=== PATIENT | male | born 1970 | race African-American/Black ===

== ENCOUNTER 2018-02-27 18:28 | Inpatient (IN) | payer BC ==
[2018-02-27] MEDS ORDERED: SODIUM CHLORIDE 0.9% 1,000 ML IV STA (19:07)
[2018-02-27] MEDS ORDERED: ONDANSETRON 4 MG/2 ML VIAL IVP STA (19:07)
[2018-02-27] MEDS ORDERED: MORPHINE SULFATE 4 MG/0.8 ML SYRINGE (INJ) IVP STA (19:08)
[2018-02-27] MEDS ORDERED: MORPHINE SULFATE 4 MG/ML SYRINGE IVP STA (19:24)
--- NOTE | 2018-02-27 19:27 | ED ---
Abdominal Pain HPI - General Chief Complaint: Abdominal Pain Stated Complaint: Abd Pain Time Seen by Provider: 02/27/18 18:57 Source: patient Mode of arrival: ambulatory Limitations: no limitations - History of Present Illness Initial Comments: 47-year-old male patient presents to the emergency department today for evaluation of right-sided abdominal pain and vomiting. Patient states that symptoms have been present for the last 25 hours. Patient states he has had 2 episodes of similar discomfort over the last 2 weekends. Patient states that the initial 2 episodes lasted around 14-15 hours. Patient states that the first episode started after eating steak, the second episode after eating a burger, and this episode after eating [place]isco. Patient states that the pain does radiate into his back and he has had some right shoulder discomfort intermittently. Patient states that he has had several episodes of vomiting. He denies any hematemesis. Denies any diarrhea, hematochezia, or melena. Patient denies any known fevers or chills. Denies any difficulty with urination. Patient denies any recent rash, shortness breath, chest pain, numbness, tingling, dizziness, weakness, hematuria, dysuria, urinary urgency, urinary frequency, headache, visual changes, or any other complaints. Patient has a past medical history significant for hypertension. Denies any previous abdominal surgeries. - Related Data Home Medications Medication Instructions Recorded Confirmed Lisinopril [Zestril] 10 mg PO DAILY 02/27/18 02/27/18 Allergies Allergy/AdvReac Type Severity Reaction Status Date / Time No Known Allergies Allergy Verified 02/27/18 20:16 Review of Systems ROS Statement: Those systems with pertinent positive or pertinent negative responses have been documented in the HPI. ROS Other: All systems not noted in ROS Statement are negative. Past Medical History Past Medical History: Hypertension History of Any Multi-Drug Resistant Organisms: None Reported Past Surgical History: No Surgical Hx Reported Past Psychological History: No Psychological Hx Reported Smoking Status: Never smoker Past Alcohol Use History: None Reported Past Drug Use History: None Reported General Exam Limitations: no limitations General appearance: alert, in no apparent distress, other (This is a well- developed, well-nourished adult male patient in no acute distress. Vital signs upon presentation are temperature 99.3F, pulse 72, respirations 18, blood pressure 202/94, pulse ox 100% on room air.) Eye exam: Present: normal appearance, PERRL, EOMI. Absent: scleral icterus, conjunctival injection, periorbital swelling ENT exam: Present: normal exam, normal oropharynx, mucous membranes moist Respiratory exam: Present: normal lung sounds bilaterally. Absent: respiratory distress, wheezes, rales, rhonchi, stridor Cardiovascular Exam: Present: regular rate, normal rhythm, normal heart sounds. Absent: systolic murmur, diastolic murmur, rubs, gallop, clicks GI/Abdominal exam: Present: soft, tenderness (Right upper quadrant abdominal tenderness, mild right lower quadrant abdominal tenderness), normal bowel sounds. Absent: distended, guarding, rebound, rigid Neurological exam: Present: alert, oriented X3, CN II-XII intact Psychiatric exam: Present: normal affect, normal mood Skin exam: Present: warm, dry, intact, normal color. Absent: rash Course Vital Signs 02/27/18 02/27/18 18:34 21:19 Temperature 99.3 F 100.3 F H Pulse Rate 72 70 Respiratory 18 18 Rate Blood Pressure 202/94 102/61 O2 Sat by Pulse 100 98 Oximetry Medical Decision Making - Medical Decision Making 47-year-old male patient percents to the emergency department today for evaluation of abdominal pain and vomiting 24 hours. Physical examination did reveal right upper quadrant abdominal tenderness. Labs reviewed and showed an amylase of 151 and a lipase of 1010. Urinalysis showed May 0.5 pH, trace protein, trace ketones. Ultrasound was obtained, visualization of the pancreas was limited but there was evidence of gallstones and gallbladder wall at 4 mm, common bile duct was within normal limits. Patient is febrile at 100.3. He continues to have vomiting. We will manage nausea, administer IV fluids, and admit for further evaluation. Spoke to Beka Alcala NP who accepts for Dr. Denney. GI is consulted. - Lab Data Result diagrams: 02/27/18 19:43 02/27/18 19:43 Lab Results 02/27/18 02/27/18 02/27/18 Range/Units 19:13 19:43 19:43 WBC 8.6 (3.8-10.6) k/uL RBC 5.30 (4.30-5.90) m/uL Hgb 15.0 (13.0-17.5) gm/dL Hct 44.1 (39.0-53.0) % MCV 83.1 (80.0-100.0) fL MCH 28.2 (25.0-35.0) pg MCHC 34.0 (31.0-37.0) g/dL RDW 12.8 (11.5-15.5) % Plt Count 302 (150-450) k/uL Neutrophils % 73 % Lymphocytes % 20 % Monocytes % 5 % Eosinophils % 1 % Basophils % 0 % Neutrophils # 6.2 (1.3-7.7) k/uL Lymphocytes # 1.7 (1.0-4.8) k/uL Monocytes # 0.4 (0-1.0) k/uL Eosinophils # 0.1 (0-0.7) k/uL Basophils # 0.0 (0-0.2) k/uL Sodium 143 (137-145) mmol/L Potassium 4.4 (3.5-5.1) mmol/L Chloride 103 (98-107) mmol/L Carbon Dioxide 24 (22-30) mmol/L Anion Gap 16 mmol/L BUN 10 (9-20) mg/dL Creatinine 1.22 (0.66-1.25) mg/dL Est GFR (CKD-EPI)AfAm 81 (>60 ml/min/1.73 sqM) Est GFR (CKD-EPI)NonAf 70 (>60 ml/min/1.73 sqM) Glucose 97 (74-99) mg/dL Calcium 9.9 (8.4-10.2) mg/dL Total Bilirubin 1.2 (0.2-1.3) mg/dL AST 25 (17-59) U/L ALT 26 (21-72) U/L Alkaline Phosphatase 68 (38-126) U/L Total Protein 7.1 (6.3-8.2) g/dL Albumin 4.3 (3.5-5.0) g/dL Amylase 151 H (30-110) U/L Lipase 1010 H (23-300) U/L Urine Color Yellow Urine Appearance Clear (Clear) Urine pH 8.5 H (5.0-8.0) Ur Specific [place] 1.013 (1.001-1.035) Urine Protein Trace H (Negative) Urine Glucose (UA) Negative (Negative) Urine Ketones Trace H (Negative) Urine Blood Negative (Negative) Urine Nitrite Negative (Negative) Urine Bilirubin Negative (Negative) Urine Urobilinogen <2.0 (<2.0) mg/dL Ur Leukocyte Esterase Negative (Negative) - Radiology Data Radiology results: report reviewed, image reviewed KUB x-ray of the abdomen is obtained. Scattered gas is seen in nondistended stomach and small bowel loops. Gas and fecal material seen in nondistended colon. Some scattered pelvic phleboliths are present. No pneumoperitoneum is identified. Lung bases are clear. Mild to moderate spurring and joint space possible sepsis present. Impression by Dr. Rainey shows overall nonobstructive bowel gas pattern. Ultrasound of the abdomen is obtained. Exam is suboptimal secondary to patient' s large body habitus per technologist. Visualized portion of pancreas shows no worrisome mass or ductal dilatation. Portions of the head and tail are obscured by overlying bowel gas. IVC is seen in the hepatic dome. Visualized liver is is heterogenous Hilario hyperechoic without intrahepatic ductal dilatation. Evaluation for focal masses is suboptimal due to heterogeneity. There are shadowing mobile gallstones in gallbladder. Gallbladder wall is minimally thickened at 4 mm. No. Cholecystic fluid is seen. Sonographic Kolb sign is negative. Visualized common bile duct is nondilated. Limited images right kidney show no gross hydronephrosis. Impression by Dr. Luna shows suboptimal evaluation of the pancreas. Disposition Clinical Impression: Acute pancreatitis, Vomiting Disposition: ADMITTED IP TO THIS [facility] Condition: Serious Decision to Admit Reason: Admit from EC Decision Date: 02/27/18 Decision Time: 21:58
[2018-02-27 19:28] LABS: Appearance,Urine Clear (Clear); Bilirubin,Urine Negative (Negative); Blood,Urine Negative (Negative); Color,Urine Yellow; Glucose,Urine (UA) Negative (Negative); Ketones,Urine Trace (Negative); Leukocyte Esterase,Urine Negative (Negative); Nitrite,Urine Negative (Negative); PH, Urine 8.5 (5.0-8.0); Protein,Urine Trace (Negative); Specific Gravity,Urine 1.013 (1.001-1.035); Urobilinogen,Urine <2.0 mg/dL (<2.0)
[2018-02-27 19:54] LABS: Basophils % (A) 0 %; Eosinophils # (A) 0.1 k/uL (0-0.7); Eosinophils % (A) 1 %; HCT 44.1 % (39.0-53.0); Lymphocytes # (A) 1.7 k/uL (1.0-4.8); Lymphocytes % (A) 20 %; MCH 28.2 pg (25.0-35.0); MCV 83.1 fL (80.0-100.0); Mean Platelet Volume 6.5; Monocytes # (A) 0.4 k/uL (0-1.0); Monocytes % (A) 5 %; Neutrophils # (A) 6.2 k/uL (1.3-7.7); Neutrophils % (A) 73 %; Platelet Count 302 k/uL (150-450); RDW 12.8 % (11.5-15.5); WBC 8.6 k/uL (3.8-10.6)
[2018-02-27 20:04] LABS: Albumin 4.3 g/dL (3.5-5.0); Calcium 9.9 mg/dL (8.4-10.2); Potassium 4.4 mmol/L (3.5-5.1); Total Bilirubin 1.2 mg/dL (0.2-1.3); Total Protein 7.1 g/dL (6.3-8.2)
[2018-02-27] MEDS ORDERED: ONDANSETRON 4 MG/2 ML VIAL IVP PRN (20:30)
[2018-02-27] MEDS ORDERED: NALOXONE 0.4 MG/ML 1 ML VIAL IV PRN (20:30)
[2018-02-27] MEDS ORDERED: FAMOTIDINE 20 MG/2 ML VIAL IV STA (20:33)
--- NOTE | 2018-02-27 20:43 | XR ---
EXAMINATION TYPE: XR KUB DATE OF EXAM: 02/27/2018 7:59 PM CLINICAL HISTORY: Generalized abdominal pain with vomiting TECHNIQUE: Two Upright KUB images of the abdomen are obtained. COMPARISON: None. FINDINGS: Scattered gas is seen in non-distended stomach and small bowel loops. Gas and fecal materia l is seen in non-distended colon. Some scattered pelvic phleboliths are present. No pneumoperitoneum is identified. Lung bases are clear. Mild to moderate spurring and joint space loss of both hips is p resent. IMPRESSION: Overall nonobstructive bowel gas pattern.
[2018-02-27] MEDS ORDERED: ACETAMINOPHEN TAB 325 MG TAB PO STA (21:23)
[2018-02-27] MEDS: SODIUM CHLORIDE 0.9% 1,000 ML IV SCH (21:28)
--- NOTE | 2018-02-27 21:32 | US ---
EXAMINATION TYPE: US abdomen limited DATE OF EXAM: 02/27/2018 COMPARISON: NONE CLINICAL HISTORY: Pancreatitis. Pain and nausea exam limitations due to body habitus. EXAM MEASUREMENTS: Liver Length: 15.8 cm Gallbladder Wall: 0.4 cm CBD: 0.5 cm Right Kidney: 10.1 x 5.5 x 5.0 cm Pancreas: Obscured by bowel gas Liver: Increased attenuation Gallbladder: multiple gallstones seen with wall thickening. Evidence for sonographic Kolb's sign: No CBD: limited due to shadowing Right Kidney: No hydronephrosis or masses seen Exam is suboptimal secondary to patient's large body habitus per technologist. Visualized portion of pancreas shows no worrisome mass or ductal dilatation. Portions of head and tail are obscured by over lying bowel gas. IVC is seen in the hepatic dome. Visualized liver is heterogeneously hyperechoic wit hout intrahepatic ductal dilatation. Evaluation for focal masses is suboptimal due to the heterogenei ty. There are shadowing mobile gallstones in gallbladder. Gallbladder wall is minimally thickened at 4 mm. No pericholecystic fluid is seen. Sonographic Kolb sign is negative. Visualized common bile d uct is nondilated. Limited images right kidney show no gross hydronephrosis. IMPRESSION: Suboptimal evaluation of pancreas.
[2018-02-27] MEDS ORDERED: SODIUM CHLORIDE 0.9% 1,000 ML IV ONE (21:37)
[2018-02-27] MEDS ORDERED: MORPHINE SULFATE 4 MG/ML SYRINGE IVP PRN (21:37)
[2018-02-27] MEDS ORDERED: METOCLOPRAMIDE 5 MG/ML 2 ML VIAL IVP STA (21:47)
[2018-02-27] MEDS ORDERED: diphenhydrAMINE 50 MG/ML 1 ML VIAL IVP PRN (21:47)
[2018-02-27] MEDS ORDERED: ACETAMINOPHEN TAB 325 MG TAB PO PRN (21:49)
[2018-02-28 07:18] LABS: Albumin 3.8 g/dL (3.5-5.0); Potassium 4.4 mmol/L (3.5-5.1); Total Bilirubin 1.2 mg/dL (0.2-1.3); Total Protein 6.4 g/dL (6.3-8.2)
[2018-02-28 07:19] LABS: Basophils % (A) 0 %; Eosinophils # (A) 0.1 k/uL (0-0.7); Eosinophils % (A) 1 %; HCT 42.3 % (39.0-53.0); Lymphocytes # (A) 1.8 k/uL (1.0-4.8); Lymphocytes % (A) 18 %; MCH 27.8 pg (25.0-35.0); MCHC 33.2 g/dL (31.0-37.0); MCV 83.7 fL (80.0-100.0); Mean Platelet Volume 6.5; Monocytes # (A) 0.6 k/uL (0-1.0); Monocytes % (A) 6 %; Neutrophils # (A) 7.4 k/uL (1.3-7.7); Neutrophils % (A) 74 %; Platelet Count 289 k/uL (150-450); RBC 5.05 m/uL (4.30-5.90); RDW 12.9 % (11.5-15.5)
[2018-02-28] MEDS: FAMOTIDINE 20 MG/2 ML VIAL IV SCH (08:25)
[2018-02-28] MEDS: SODIUM CHLORIDE 0.9% 1,000 ML IV SCH ×3 (08:26→23:00)
--- NOTE | 2018-02-28 10:00 | P.CONS ---
History of Present Illness - Reason for Consult Consult date: 02/28/18 Pancreatitis Requesting physician: Meaghan Denney - History of Present Illness 47-year-old gentleman with no significant past medical history presents with colicky upper abdominal epigastric pain radiating to her upper back intermittently over the last 3 weeks with nausea no emesis. He has no history of this type of pain. No changes in medications no history of autoimmune disorders. No fever or chills. Denies hematemesis hematochezia melena. T-max 100.3. Admission amylase 151. Lipase 1010. Presently amylase is 71. Lipase 217. LFTs within normal limits. Ultrasound abdomen showed numerous gallstones with nondilated biliary tree. CBD 0.5 centimeters. Gallbladder wall 0.4 cm. No pericholecystic fluid. Suboptimal evaluation of pancreas. Denies weight loss. No history of pancreatitis. No history of EtOH abuse. Review of Systems Constitutional: Denies fever, chills, sweats, weight gain, or loss. HEENT: Negative for migraines, blurred vision or loss, earaches, drainage, tinnitus, oral mucosal lesions, dysphagia, or odynophagia. Cardiac: History of hypertension. Negative for chest pain, arrhythmias, or palpitation. Respiratory: Negative for shortness of breath, hemoptysis, cough, or sputum production. Gastrointestinal: See HPI for pertinent findings. Genitourinary: Negative for hematuria, urgency, frequency, polyuria, dysuria, or penile discharge. Musculoskeletal: Negative for muscle aches, swelling, arthritis, and arthralgias. Neurologic: Negative for stroke or TIA. Endocrine: Negative for thyroid problems. Skin: Negative for rash or itching. Psychiatric: Negative history for depression and anxiety Past Medical History Past Medical History: Hypertension History of Any Multi-Drug Resistant Organisms: None Reported Past Surgical History: No Surgical Hx Reported Past Psychological History: No Psychological Hx Reported Smoking Status: Never smoker Past Alcohol Use History: None Reported Past Drug Use History: None Reported - Past Family History Father Additional Family Medical History / Comment(s): Client states family history unknown. Medications and Allergies Home Medications Medication Instructions Recorded Confirmed Type Lisinopril [Zestril] 10 mg PO DAILY 02/27/18 02/27/18 History Allergies Allergy/AdvReac Type Severity Reaction Status Date / Time No Known Allergies Allergy Verified 02/27/18 20:16 Physical Exam Vitals: Vital Signs Temp Pulse Pulse Resp BP BP Pulse Ox 02/28/18 08:30 16 02/28/18 08:24 99.9 F H 68 16 146/82 99 02/28/18 00:42 98.5 F 70 16 146/81 97 02/28/18 00:00 16 02/27/18 22:38 76 16 02/27/18 22:05 99.0 F 76 16 160/90 98 02/27/18 21:19 100.3 F H 70 18 102/61 98 02/27/18 18:34 99.3 F 72 18 202/94 100 Intake and Output 02/27/18 02/28/18 02/28/18 22:59 06:59 14:59 Intake Total 1997 1000 Balance 1997 1000 Intake: Intake, IV Titration 1997 1000 Amount Sodium Chloride 0.9% 1, 1000 000 ml @ 125 mls/hr IV . Q8H SAIRA Rx#:[id number] Sodium Chloride 0.9% 1, 999 000 ml @ 999 mls/hr IV . Q1H1M ONE Rx#:[id number] Sodium Chloride 0.9% 1, 999 000 ml @ 999 mls/hr IV . Q1H1M STA Rx#:[id number] Other: # Voids 1 3 Weight 118.297 kg General appearance: The patient is alert, oriented, in no acute distress. HET: Head is normocephalic and atraumatic. Pupils are equal and reactive. Oropharynx is clear without lesions. Neck: Supple without lymphadenopathy. Trachea midline. Heart: S1 S2. Regular rate and rhythm. Lungs: No crackles or wheezes are heard. Abdomen: Soft, mild midepigastric tenderness, nondistended with bowel sounds. No peritoneal signs. No palpable organomegaly or masses. Extremities: Normal skin color and turgor. No cyanosis, rash, ulceration, clubbing, or edema. Radial and pedal pulses are 2/4 bilaterally. Neurological: No focal deficits. Strength and sensation are grossly intact. Results CBC & Chem 7: 02/28/18 06:44 02/28/18 06:44 Labs: Abnormal Lab Results - Last 24 Hours (Table) 02/27/18 02/27/18 02/28/18 Range/Units 19:13 19:43 06:44 Glucose 109 H (74-99) mg/dL Amylase 151 H (30-110) U/L Lipase 1010 H (23-300) U/L Urine pH 8.5 H (5.0-8.0) Urine Protein Trace H (Negative) Urine Ketones Trace H (Negative) US - abdomen: report reviewed (Dr. Chowdhury) Assessment and Plan (1) Acute pancreatitis Narrative/Plan: Suspect gallstone pancreatitis other differentials to consider are hypertriglyceridemia possible autoimmune possible peptic ulcer disease but the latter felt to be less likely. Presently patient's abdominal pain is improved pancreatic enzymes have normalized. Current Visit: Yes Status: Acute Code(s): K85.90 - ACUTE PANCREATITIS WITHOUT NECROSIS OR INFECTION, UNSP SNOMED Code(s): 669518490 (2) Cholelithiasis Current Visit: Yes Status: Acute Code(s): K80.20 - CALCULUS OF GALLBLADDER W /O CHOLECYSTITIS W/O OBSTRUCTION SNOMED Code(s): 086707495 Plan: 1. Recommend surgical consultation. 2. Will obtain triglyceride level. LFTs within normal limits therefore ERCP/ MRCP not indicated at this time. We'll follow with you. Thank you for this kind referral and the opportunity to participate in the care of your patient. This consultation was discussed with Dr. Chowdhury. The impression and plan of care have been directed as dictated.
--- NOTE | 2018-02-28 11:10 | P.HPIM ---
History of Present Illness 47-year-old gentleman came in with complaints of epigastric abdominal pain radiating to back started on Tuesday, associated nausea vomiting yesterday evening the pain is related to food patient had T-max of 100.3. Patient denied any hematemesis hematochezia. Patient is found to have mildly elevated lipase of around thousand with gallstones patient may have passed a gallstone. No common bile duct stone or dilated patient. Patient's pain significant improved denied any nausea. We'll advance her diet today we'll consult the surgery for possible gallstone pancreatitis and gallstones, and cholecystectomy. Review of Systems REVIEW OF SYSTEMS: CONSTITUTIONAL: No fever, no malaise, no fatigue. HEENT: No recent visual problems or hearing problems. Denied any sore throat. CARDIOVASCULAR: No chest pain, orthopnea, PND, no palpitations, no syncope. PULMONARY: No shortness of breath, no cough, no hemoptysis. GASTROINTESTINAL: As described in HPI NEUROLOGICAL: No headaches, no weakness, no numbness. HEMATOLOGICAL: Denies any bleeding or petechiae. GENITOURINARY: Denies any burning micturition, frequency, or urgency. MUSCULOSKELETAL/RHEUMATOLOGICAL: Denies any joint pain, swelling, or any muscle pain. ENDOCRINE: Denies any polyuria or polydipsia. The rest of the 14-point review of systems is negative. Past Medical History Past Medical History: Hypertension History of Any Multi-Drug Resistant Organisms: None Reported Past Surgical History: No Surgical Hx Reported Past Psychological History: No Psychological Hx Reported Smoking Status: Never smoker Past Alcohol Use History: None Reported Past Drug Use History: None Reported - Past Family History Father Additional Family Medical History / Comment(s): Client states family history unknown. Medications and Allergies Home Medications Medication Instructions Recorded Confirmed Type Lisinopril [Zestril] 10 mg PO DAILY 02/27/18 02/27/18 History Allergies Allergy/AdvReac Type Severity Reaction Status Date / Time No Known Allergies Allergy Verified 02/27/18 20:16 Physical Exam Vitals: Vital Signs Temp Pulse Pulse Resp BP BP Pulse Ox 02/28/18 08:30 16 02/28/18 08:24 99.9 F H 68 16 146/82 99 02/28/18 00:42 98.5 F 70 16 146/81 97 02/28/18 00:00 16 02/27/18 22:38 76 16 02/27/18 22:05 99.0 F 76 16 160/90 98 02/27/18 21:19 100.3 F H 70 18 102/61 98 02/27/18 18:34 99.3 F 72 18 202/94 100 Intake and Output 02/27/18 02/28/18 02/28/18 22:59 06:59 14:59 Intake Total 1997 1000 Balance 1997 1000 Intake: Intake, IV Titration 1997 1000 Amount Sodium Chloride 0.9% 1, 1000 000 ml @ 125 mls/hr IV . Q8H SAIRA Rx#:[id number] Sodium Chloride 0.9% 1, 999 000 ml @ 999 mls/hr IV . Q1H1M ONE Rx#:[id number] Sodium Chloride 0.9% 1, 999 000 ml @ 999 mls/hr IV . Q1H1M STA Rx#:[id number] Other: # Voids 1 3 Weight 118.297 kg PHYSICAL EXAMINATION: GENERAL: The patient is alert and oriented x3, not in any acute distress. Obese HEENT: Pupils are round and equally reacting to light. EOMI. No scleral icterus. No conjunctival pallor. Normocephalic, atraumatic. No pharyngeal erythema. No thyromegaly. CARDIOVASCULAR: S1 and S2 present. No murmurs, rubs, or gallops. PULMONARY: Chest is clear to auscultation, no wheezing or crackles. ABDOMEN: Soft, nontender, nondistended, normoactive bowel sounds. No palpable organomegaly. MUSCULOSKELETAL: No joint swelling or deformity. EXTREMITIES: No cyanosis, clubbing, or pedal edema. NEUROLOGICAL: Gross neurological examination did not reveal any focal deficits. SKIN: No rashes. Results CBC & Chem 7: 02/28/18 06:44 02/28/18 06:44 Labs: Abnormal Lab Results - Last 24 Hours (Table) 02/27/18 02/27/18 02/28/18 Range/Units 19:13 19:43 06:44 Glucose 109 H (74-99) mg/dL Amylase 151 H (30-110) U/L Lipase 1010 H (23-300) U/L Urine pH 8.5 H (5.0-8.0) Urine Protein Trace H (Negative) Urine Ketones Trace H (Negative) Thrombosis Risk Factor Assmnt - Choose All That Apply Any of the Below Risk Factors Present?: Yes Each Factor Represents 1 point: Age 41-60 years, Obesity (BMI >25) Thrombosis Risk Factor Assessment Total Risk Factor Score: 2 Thrombosis Risk Factor Assessment Level: Low Risk Assessment and Plan Plan: -Possible mild gallstone pancreatitis: Patient is not nauseous symptoms improved can be started on diet. -Cholelithiasis without any cholecystitis: Surgery will be consulted because of his pancreatitis from gallstones. -Hypertension: Will hold off on lisinopril temporarily can be started depending on his blood pressures during this hospitalization -Possible gastritis for which patient on Pepcid which will be continued Fevers mild low-grade secondary to gallstone pancreatitis
[2018-03-01] MEDS: SODIUM CHLORIDE 0.9% 1,000 ML IV SCH ×3 (06:02→21:54)
[2018-03-01] MEDS ORDERED: MORPHINE ORAL SOLN 10 MG/5 ML CUP PO PRN (08:16)
[2018-03-01] MEDS: FAMOTIDINE 20 MG/2 ML VIAL IV SCH (08:58)
--- NOTE | 2018-03-01 09:19 | P.PN ---
Subjective Progress Note Date: 03/01/18 Principal diagnosis: Pancreatitis 47-year-old male admitted with a three-week history of intermittent upper abdominal pain with elevated pancreatic enzymes consistent with acute pancreatitis. Ultrasound abdomen reported multiple gallstones with normal liver function tests. This morning he feels well. Afebrile. Awaiting surgical evaluation. Triglycerides within normal limits. Objective - Vital Signs Vital signs: Vital Signs Temp 98.4 F 03/01/18 07:10 Pulse 54 L 03/01/18 07:10 Resp 16 03/01/18 07:10 BP 135/88 03/01/18 07:10 Pulse Ox 98 03/01/18 07:10 Intake & Output 02/28/18 03/01/18 03/01/18 18:59 06:59 18:59 Intake Total 375 Balance 375 Weight 118.297 kg Intake: Intake, IV Titration 375 Amount Sodium Chloride 0.9% 1, 375 000 ml @ 125 mls/hr IV . Q8H SAIRA Rx#:[id number] Other: # Voids 3 1 # Bowel Movements 0 0 - Exam General appearance: The patient is alert, oriented, in no acute distress. HET: Head is normocephalic and atraumatic. Pupils are equal and reactive. Oropharynx is clear without lesions. Neck: Supple without lymphadenopathy. Trachea midline. Heart: S1 S2. Regular rate and rhythm. Lungs: No crackles or wheezes are heard. Abdomen: Soft, nontender, nondistended with bowel sounds. No peritoneal signs. No palpable organomegaly or masses. Extremities: Normal skin color and turgor. No cyanosis, rash, ulceration, clubbing, or edema. Radial and pedal pulses are 2/4 bilaterally. Neurological: No focal deficits. Strength and sensation are grossly intact. - Labs CBC & Chem 7: 02/28/18 06:44 02/28/18 06:44 Assessment and Plan (1) Acute pancreatitis Narrative/Plan: Suspect gallstone pancreatitis other differentials to consider are hypertriglyceridemia also autoimmune possible peptic ulcer disease but the latter felt to be less likely. Presently patient's abdominal pain is improved pancreatic enzymes have normalized. Current Visit: Yes Status: Acute Code(s): K85.90 - ACUTE PANCREATITIS WITHOUT NECROSIS OR INFECTION, UNSP SNOMED Code(s): 745766108 (2) Cholelithiasis Current Visit: Yes Status: Acute Code(s): K80.20 - CALCULUS OF GALLBLADDER W /O CHOLECYSTITIS W/O OBSTRUCTION SNOMED Code(s): 046493002 Plan: 1. Surgical consult. No further workup. We'll follow as needed. Assessment and plan a care discussed with Dr. Chowdhury
--- NOTE | 2018-03-01 09:54 | P.DS ---
Providers Date of admission: 02/27/18 20:24 Attending physician: Meaghan Denney Consults: 02/28/18 10:58 Consult Physician Routine Consulting Provider: Sofia Graf Consult Reason/Comments: Gallstone pancreatitis Do you want consulting provider notified?: Yes Primary care physician: Frank Ledezma Lds Hospital Course: 47-year-old woman admitted for mild pancreatitis patient does have cholelithiasis patient will be discharged on 14 days of Prilosec for possibility of mild gastritis. Patient will be evaluated by surgery on this hospitalization after that if cleared by surgery patient will be discharged today patient was on lisinopril for hypertension which I do not believe will be required any more he did not take lisinopril in spite of which his blood pressure remained stable and cleared. Dietary counseling for 59 was provided. Patient will follow with stiffness surgery as an outpatient. Patient is able to tolerate diet well PHYSICAL EXAMINATION: GENERAL: The patient is alert and oriented x3, not in any acute distress. Well developed, well nourished. HEENT: Pupils are round and equally reacting to light. EOMI. No scleral icterus. No conjunctival pallor. Normocephalic, atraumatic. No pharyngeal erythema. No thyromegaly. CARDIOVASCULAR: S1 and S2 present. No murmurs, rubs, or gallops. PULMONARY: Chest is clear to auscultation, no wheezing or crackles. ABDOMEN: Soft, nontender, nondistended, normoactive bowel sounds. No palpable organomegaly. MUSCULOSKELETAL: No joint swelling or deformity. EXTREMITIES: No cyanosis, clubbing, or pedal edema. NEUROLOGICAL: Gross neurological examination did not reveal any focal deficits. SKIN: No rashes. For other chronic medical problems and hospice physician goes please refer to my dictation of H&P from yesterday. Patient Condition at Discharge: Serious Plan - Discharge Summary Discharge Rx Participant: No New Discharge Prescriptions: New Omeprazole [PriLOSEC] 40 mg PO AC-BRKFST #14 capsule. Discontinued Lisinopril [Zestril] 10 mg PO DAILY Discharge Medication List Omeprazole [PriLOSEC] 40 mg PO AC-BRKFST #14 capsule. 03/01/18 [Rx] Follow up Appointment(s)/Referral(s): Souphis,Frank, DO [Primary Care Provider] - 3 Days Discharge Disposition: HOME SELF-CARE
--- NOTE | 2018-03-01 11:31 | P.GSCN ---
<Muriel Zepeda - Last Filed: 03/01/18 11:10> History of Present Illness Consult date: 03/01/18 Reason for Consult: Elevated pancreatic enzymes with intermittent upper abdominal pain History of present illness: A pleasant 47-year-old male being seen at the request of the attending for a surgical eval for history of intermittent right upper quadrant abdominal pain. With a nausea sensation Patient states over the last several weeks especially on the weekend when he eats a higher fat diet has had episodes of right upper quadrant abdominal pain with a nausea sensation. Patient presented to the emergency room to be evaluated for the above-mentioned symptoms. In the emergency room the lipase was elevated to 1010. Ultrasound of the abdomen was obtained gallbladder wall thickening the common bile duct not dilated there were multiple gallstones noted in the gallbladder. Patient gives no alcohol history states a nondrinker. No family history of gallbladder disease. No prior history of pancreatitis. Currently patient states right upper quadrant abdominal pain has improved continues to persist No past surgical history. Past medical history hypertension. Review of Systems Essentially unremarkable except as mentioned in present illness Past Medical History Past Medical History: Hypertension History of Any Multi-Drug Resistant Organisms: None Reported Past Surgical History: No Surgical Hx Reported Past Psychological History: No Psychological Hx Reported Smoking Status: Never smoker Past Alcohol Use History: None Reported Past Drug Use History: None Reported - Past Family History Father Additional Family Medical History / Comment(s): Client states family history unknown. Medications and Allergies Home Medications Medication Instructions Recorded Confirmed Type Omeprazole [PriLOSEC] 40 mg PO AC-BRKFST #14 capsule. 03/01/18 Rx Allergies Allergy/AdvReac Type Severity Reaction Status Date / Time No Known Allergies Allergy Verified 02/27/18 20:16 Surgical - Exam Vital Signs Temp Pulse Resp BP Pulse Ox 99.3 F 72 18 202/94 100 02/27/18 18:34 02/27/18 18:34 02/27/18 18:34 02/27/18 18:34 02/27/18 18:34 GENERAL APPEARANCE: 47-year-old patient is alert, oriented 3 in no acute distress. VITAL SIGNS: Reviewed HEENT: Head is normocephalic and atraumatic. Pupils are equal and reactive. The nares are patent. Oropharynx is clear without lesions. NECK: Supple without lymphadenopathy. Traches midline. HEART: S1, S2. Regular rate and rhythm. Denying chest pain LUNGS: No crackles or wheezes are heard. Adequate air movement bilaterally no cough ABDOMEN: Soft, mild tenderness right upper quadrant, nondistended with good bowel sounds. No peritoneal signs. No palpable organomegaly or masses. EXTREMITIES: Normal skin color and turgor. No cyanosis, rash, ulceration, clubbing or edema. Radial pedal pulses are 2/4 bilaterally. NEUROLOGICAL: No focal deficits. Strength and sensation are grossly intact. Results - Labs 02/28/18 06:44 02/28/18 06:44 Diabetes panel 02/28/18 Range/Units 06:44 Triglycerides 69 (<150) mg/dL Assessment and Plan Assessment: Impression Present on admission intermittent episodes right upper quadrant pain with nausea vomiting suspect due to acute pancreatitis with cholelithiasis Present on admission febrile suspect due to acute pancreatitis Mild leukocytosis suspect reactive Obesity BMI 34 Ultrasound abdomen shows evidence of multiple gallstones with gallbladder wall thickening Present on admission elevated lipase 1010 suspect due to acute pancreatitis Plan Continue IV fluid as ordered DVT and GI prophylaxis Timing of the cholecystectomy to be determined after Dr. Dagoberto turk Continue clear liquid diet Will follow with you with further recommendations Surgical consultation note dictated for Dr. Arenas <Gisel Arenas N - Last Filed: 03/01/18 22:12> Surgical - Exam Vital Signs Temp Pulse Resp BP Pulse Ox 99.3 F 72 18 202/94 100 02/27/18 18:34 02/27/18 18:34 02/27/18 18:34 02/27/18 18:34 02/27/18 18:34 Results - Labs 02/28/18 06:44 02/28/18 06:44 Assessment and Plan Plan: Patient seen and evaluated. Benefits and risks of robotic cholecystectomy was described in detail. Patient has chosen to proceed with cholecystectomy while inpatient. Patient education performed at bedside including postoperative recovery.
[2018-03-02] MEDS: SODIUM CHLORIDE 0.9% 1,000 ML IV SCH (04:06)
[2018-03-02] MEDS: FAMOTIDINE 20 MG/2 ML VIAL IV SCH (08:40)
--- NOTE | 2018-03-02 09:55 | P.PN ---
Subjective Patient is admitted secondary to gallstone factor that is clinically doing well is tolerating diet well IV fluids will be discontinued patient will undergo cholecystectomy tomorrow. Constitutional: Denied any fatigue denied any fever. Cardio vascular: denied any chest pain, palpitations Gastrointestinal denied any nausea vomiting Pulmonary: Denied any shortness of breath cough Neurologic denied any new focal deficits Objective - Vital Signs Vital signs: Vital Signs Temp 98.9 F 03/02/18 07:54 Pulse 64 03/02/18 07:54 Resp 16 03/02/18 07:54 BP 143/95 03/02/18 07:54 Pulse Ox 97 03/02/18 07:54 Intake & Output 03/01/18 03/02/18 03/02/18 18:59 06:59 18:59 Intake Total 1000 Balance 1000 Intake: IV 1000 Sodium Chloride 0.9% 1, 1000 000 ml @ 125 mls/hr IV . Q8H [facility] Rx#:[id number] Other: # Voids 1 - Exam PHYSICAL EXAMINATION: GENERAL: The patient is alert and oriented x3, not in any acute distress. Well developed, well nourished. HEENT: Pupils are round and equally reacting to light. EOMI. No scleral icterus. No conjunctival pallor. Normocephalic, atraumatic. No pharyngeal erythema. No thyromegaly. CARDIOVASCULAR: S1 and S2 present. No murmurs, rubs, or gallops. PULMONARY: Chest is clear to auscultation, no wheezing or crackles. ABDOMEN: Soft, nontender, nondistended, normoactive bowel sounds. No palpable organomegaly. MUSCULOSKELETAL: No joint swelling or deformity. EXTREMITIES: No cyanosis, clubbing, or pedal edema. NEUROLOGICAL: Gross neurological examination did not reveal any focal deficits. SKIN: No rashes. - Labs CBC & Chem 7: 02/28/18 06:44 02/28/18 06:44 Assessment and Plan Plan: -Possible mild gallstone pancreatitis: Patient is tolerating diet and the will undergo cholecystectomy tomorrow -Cholelithiasis without any cholecystitis: -Hypertension: Continue lisinopril -Possible gastritis for which patient on Pepcid which will be continued Fevers mild low-grade secondary to gallstone pancreatitis, resolved now
--- NOTE | 2018-03-02 10:28 | P.PN ---
<Muriel Zepeda M - Last Filed: 03/02/18 10:20> Subjective Progress Note Date: 03/02/18 47-year-old male seen this morning at bedside. Patient states continues to have intermittent right upper quadrant abdominal discomfort "not as intense" remains afebrile. Currently denying any nausea or vomiting. Currently tolerating diet. Patient is aware of the plan of care will be scheduled tomorrow March 03 for a robotic cholecystectomy for cholelithiasis. With Dr. Arenas Objective - Vital Signs Vital signs: Vital Signs Temp 98.9 F 03/02/18 07:54 Pulse 64 03/02/18 07:54 Resp 16 03/02/18 07:54 BP 143/95 03/02/18 07:54 Pulse Ox 97 03/02/18 07:54 Intake & Output 03/01/18 03/02/18 03/02/18 18:59 06:59 18:59 Intake Total 1000 Balance 1000 Intake: IV 1000 Sodium Chloride 0.9% 1, 1000 000 ml @ 125 mls/hr IV . Q8H [facility] Rx#:[id number] Other: # Voids 1 - Exam Physical exam Pleasant 47-year-old gentleman sitting up in bed oriented 3 talkative chief complaint this morning constipation no bowel movement since Tuesday Lungs adequate air movement bilaterally on room air Heart S1-S2 audible regular denying chest pain Abdomen mild tenderness with palpitation to the right upper quadrant nondistended bowel tones present urinating no difficulty tolerating diet no nausea vomiting Extremities no edema noted no calf Tenderness - Labs CBC & Chem 7: 02/28/18 06:44 02/28/18 06:44 Assessment and Plan Assessment: Impression Present on admission intermittent episodes right upper quadrant pain with nausea vomiting suspect due to acute pancreatitis with cholelithiasis Present on admission febrile suspect due to acute pancreatitis Mild leukocytosis suspect reactive Obesity BMI 34 Ultrasound abdomen shows evidence of multiple gallstones with gallbladder wall thickening Present on admission elevated lipase 1010 suspect due to acute pancreatitis improving trending down Hypertension essential Plan Low fiber diet advanced regular DVT and GI prophylaxis Nothing by mouth after midnight for planned robotic cholecystectomy March 03 Home meds as appropriate Will follow with you with further recommendations Colace 100 mg twice a day for constipation note dictated for Dr. Arenas <Gisel Arenas N - Last Filed: 03/03/18 07:34> Objective - Vital Signs Vital signs: Vital Signs Temp 99.1 F 03/02/18 22:32 Pulse 58 L 03/02/18 22:32 Resp 16 03/02/18 22:32 BP 146/76 03/02/18 22:32 Pulse Ox 97 03/02/18 22:32 Intake & Output 03/02/18 03/03/18 03/03/18 18:59 06:59 18:59 Intake Total 375 Balance 375 Intake: IV 375 Sodium Chloride 0.9% 1, 375 000 ml @ 125 mls/hr IV . Q8H [facility] Rx#:[id number] Other: # Voids 4 1 - Labs CBC & Chem 7: 02/28/18 06:44 02/28/18 06:44 Assessment and Plan Plan: Patient is seen and evaluated. All questions regarding surgery were addressed. We'll proceed with cholecystectomy tomorrow.
[2018-03-02] MEDS: DOCUSATE 100 MG CAP PO SCH ×2 (11:51→20:45)
[2018-03-03] MEDS ORDERED: ceFAZolin IN SWFI 2 GM/20 ML SYRINGE IVP ONE (07:35)
--- NOTE | 2018-03-03 07:35 | P.HPADDEND ---
H&P Addendum H&P Addendum Date: 03/03/18 Patient seen and evaluated. Patient will proceed with cholecystectomy, robotic- assisted described.
[2018-03-03] MEDS ORDERED: INDOCYANINE GREEN 25 MG VIAL IV STA (07:36)
--- NOTE | 2018-03-03 07:45 | P.PN ---
Subjective Progress Note Date: 03/02/18 <Muriel Zepeda M - Last Filed: 03/02/18 10:20> Subjective Progress Note Date: 03/02/18 47-year-old male seen this morning at bedside. Patient states continues to have intermittent right upper quadrant abdominal discomfort "not as intense" remains afebrile. Currently denying any nausea or vomiting. Currently tolerating diet. Patient is aware of the plan of care will be scheduled tomorrow March 03 for a robotic cholecystectomy for cholelithiasis. With Dr. Arenas Objective - Vital Signs Vital signs: Vital Signs Temp 98.9 F 03/02/18 07:54 Pulse 64 03/02/18 07:54 Resp 16 03/02/18 07:54 BP 143/95 03/02/18 07:54 Pulse Ox 97 03/02/18 07:54 Intake & Output 03/01/18 03/02/18 03/02/18 18:59 06:59 18:59 Intake Total 1000 Balance 1000 Intake: IV 1000 Sodium Chloride 0.9% 1, 1000 000 ml @ 125 mls/hr IV . Q8H [facility] Rx#:[id number] Other: # Voids 1 - Exam Physical exam Pleasant 47-year-old gentleman sitting up in bed oriented 3 talkative chief complaint this morning constipation no bowel movement since Tuesday Lungs adequate air movement bilaterally on room air Heart S1-S2 audible regular denying chest pain Abdomen mild tenderness with palpitation to the right upper quadrant nondistended bowel tones present urinating no difficulty tolerating diet no nausea vomiting Extremities no edema noted no calf Tenderness - Labs CBC & Chem 7: 02/28/18 06:44 02/28/18 06:44 Assessment and Plan Assessment: Impression Present on admission intermittent episodes right upper quadrant pain with nausea vomiting suspect due to acute pancreatitis with cholelithiasis Present on admission febrile suspect due to acute pancreatitis Mild leukocytosis suspect reactive Obesity BMI 34 Ultrasound abdomen shows evidence of multiple gallstones with gallbladder wall thickening Present on admission elevated lipase 1010 suspect due to acute pancreatitis improving trending down Hypertension essential Plan Low fiber diet advanced regular DVT and GI prophylaxis Nothing by mouth after midnight for planned robotic cholecystectomy March 03 Home meds as appropriate Will follow with you with further recommendations Colace 100 mg twice a day for constipation note dictated for Dr. Arenas <Gisel Arenas - Last Filed: 03/03/18 07:34> Objective - Vital Signs Vital signs: Vital Signs Temp 99.1 F 03/02/18 22:32 Pulse 58 L 03/02/18 22:32 Resp 16 03/02/18 22:32 BP 146/76 03/02/18 22:32 Pulse Ox 97 03/02/18 22:32 Intake & Output 03/02/18 03/03/18 03/03/18 18:59 06:59 18:59 Intake Total 375 Balance 375 Intake: IV 375 Sodium Chloride 0.9% 1, 375 000 ml @ 125 mls/hr IV . Q8H [facility] Rx#:[id number] Other: # Voids 4 1 - Labs CBC & Chem 7: 02/28/18 06:44 02/28/18 06:44 Assessment and Plan Plan: Patient is seen and evaluated. All questions regarding surgery were addressed. We'll proceed with cholecystectomy tomorrow. Objective - Vital Signs Vital signs: Vital Signs Temp 99.1 F 03/02/18 22:32 Pulse 58 L 03/02/18 22:32 Resp 16 03/02/18 22:32 BP 146/76 03/02/18 22:32 Pulse Ox 97 03/02/18 22:32 Intake & Output 03/02/18 03/03/18 03/03/18 18:59 06:59 18:59 Intake Total 375 Balance 375 Intake: IV 375 Sodium Chloride 0.9% 1, 375 000 ml @ 125 mls/hr IV . Q8H [facility] Rx#:[id number] Other: # Voids 4 1 - Labs CBC & Chem 7: 02/28/18 06:44 02/28/18 06:44
[2018-03-03 07:47] LABS: Basophils % (A) 0 %; Eosinophils # (A) 0.2 k/uL (0-0.7); Eosinophils % (A) 4 %; HCT 39.9 % (39.0-53.0); HGB 13.4 gm/dL (13.0-17.5); Lymphocytes # (A) 1.7 k/uL (1.0-4.8); Lymphocytes % (A) 33 %; MCH 28.1 pg (25.0-35.0); MCHC 33.6 g/dL (31.0-37.0); MCV 83.5 fL (80.0-100.0); Mean Platelet Volume 6.6; Monocytes # (A) 0.4 k/uL (0-1.0); Monocytes % (A) 7 %; Neutrophils # (A) 2.7 k/uL (1.3-7.7); Neutrophils % (A) 54 %; Platelet Count 302 k/uL (150-450); RBC 4.78 m/uL (4.30-5.90); WBC 5.1 k/uL (3.8-10.6)
[2018-03-03 08:04] LABS: Albumin 3.6 g/dL (3.5-5.0); Calcium 9.3 mg/dL (8.4-10.2); Potassium 4.1 mmol/L (3.5-5.1); Total Bilirubin 0.7 mg/dL (0.2-1.3); Total Protein 6.4 g/dL (6.3-8.2)
[2018-03-03] MEDS ORDERED: SODIUM CHLORIDE 0.9% 1,000 ML IV SCH (08:15)
[2018-03-03] MEDS ORDERED: LACTATED RINGERS 1,000 ML IV ONE ×3 (08:33→10:23)
[2018-03-03] MEDS ORDERED: ONDANSETRON ODT 4 MG TAB PO ONE (08:53)
[2018-03-03] MEDS ORDERED: HEPARIN SODIUM,PORCINE 5,000 UNIT/ML 1 ML VIAL SQ ONE (08:55)
[2018-03-03] MEDS ORDERED: LISINOPRIL 10 MG TAB PO SCH (09:00)
[2018-03-03] MEDS ORDERED: GLYCOPYRROLATE 0.2 MG/ML 2 ML VIAL ONE (09:24)
[2018-03-03] MEDS ORDERED: MIDAZOLAM 2 MG/2 ML VIAL ONE (09:24)
[2018-03-03] MEDS ORDERED: NEOSTIGMINE 1 MG/ML 10 ML VIAL ONE (09:24)
[2018-03-03] MEDS ORDERED: KETOROLAC 30 MG/ML 1 ML VIAL ONE (09:24)
[2018-03-03] MEDS ORDERED: ROCURONIUM BROMIDE 10 MG/ML 10 ML VIAL IV ONE (09:24)
[2018-03-03] MEDS ORDERED: LIDOCAINE 1% INJ 10MG/ML (20 ML MDV) ONE (09:24)
[2018-03-03] MEDS ORDERED: INDOCYANINE GREEN 25 MG VIAL IV ONE (09:24)
[2018-03-03] MEDS ORDERED: PROPOFOL 10 MG/ML 20 ML VIAL IV ONE ×2 (09:24)
[2018-03-03] MEDS ORDERED: fentaNYL (PF) 50 MCG/ML 2 ML AMP ONE (09:24)
[2018-03-03] MEDS ORDERED: MORPHINE SULFATE 10 MG/ML SYRINGE ONE (09:24)
[2018-03-03] MEDS ORDERED: BUPIVACAINE (PF) 0.25% 30 ML VIAL SQ ONE (09:46)
--- NOTE | 2018-03-03 11:03 | P.DS ---
Providers Date of admission: 02/27/18 20:24 Attending physician: Meaghan Denney Consults: 02/28/18 10:58 Consult Physician Routine Consulting Provider: Sofia Graf Consult Reason/Comments: Gallstone pancreatitis Do you want consulting provider notified?: Yes Primary care physician: Frank Ledezma [facility] Course: Patient is admitted secondary to gallstone factor that is clinically doing well is tolerating diet, patient will undergo cholecystectomy and patient will be discharged after that. Patient has mildly worsened creatinine up to 1.2 from 1. 1 repeat basic metabolic profile will be obtained as an outpatient. PHYSICAL EXAMINATION: GENERAL: The patient is alert and oriented x3, not in any acute distress. Well developed, well nourished. HEENT: Pupils are round and equally reacting to light. EOMI. No scleral icterus. No conjunctival pallor. Normocephalic, atraumatic. No pharyngeal erythema. No thyromegaly. CARDIOVASCULAR: S1 and S2 present. No murmurs, rubs, or gallops. PULMONARY: Chest is clear to auscultation, no wheezing or crackles. ABDOMEN: Soft, nontender, nondistended, normoactive bowel sounds. No palpable organomegaly. MUSCULOSKELETAL: No joint swelling or deformity. EXTREMITIES: No cyanosis, clubbing, or pedal edema. NEUROLOGICAL: Gross neurological examination did not reveal any focal deficits. SKIN: No rashes. Assessment and Plan Plan: -Possible mild gallstone pancreatitis: -Cholelithiasis without any cholecystitis: -Hypertension: Continue lisinopril -Possible gastritis Fevers mild low-grade secondary to gallstone pancreatitis, resolved now Patient Condition at Discharge: Serious Plan - Discharge Summary Discharge Rx Participant: No New Discharge Prescriptions: New Omeprazole [PriLOSEC] 40 mg PO AC-BRKFST #14 capsule. Continue Lisinopril [Prinivil] 10 mg PO DAILY Discontinued Lisinopril [Zestril] 10 mg PO DAILY Discharge Medication List Omeprazole [PriLOSEC] 40 mg PO AC-BRKFST #14 capsule. 03/01/18 [Rx] Lisinopril [Prinivil] 10 mg PO DAILY 03/02/18 [History] Follow up Appointment(s)/Referral(s): Frank Ledezma DO [Primary Care Provider] - 03/10/18 9:40 am Ambulatory/Diagnostic Orders: Basic Metabolic Panel [LAB.AMB] Time Frame: 2 Days, Location: Determined By Patient Patient Instructions/Handouts: Omeprazole (By mouth), Pancreatitis (DC), Gallstones (DC) Discharge Disposition: HOME SELF-CARE
--- NOTE | 2018-03-03 12:54 | P.OP ---
Date of Procedure: 03/03/18 Description of Procedure: SURGEON: ZEINAB MENDEZ MD ASSISTANT GOLF COURSE SUPERINTENDENT: BETI CEJA PREOPERATIVE DIAGNOSES: 1. Symptomatic gallstones 2. Gallstone pancreatitis 3. Gastroesophageal reflux disease. 4. Hypertensive heart disease POSTOPERATIVE DIAGNOSES: 1. Acute on chronic cholecystitis due to cystic duct obstruction with hydrops 2. Gallstone pancreatitis 3. Gastroesophageal reflux disease. 4. Hypertensive heart disease 5. Symptomatic gallstones OPERATION: Robotic-assisted da Lori Xi laparoscopic cholecystectomy, multiport with FIREFLY ESTIMATED BLOOD LOSS: 100 mL. SPECIMENS REMOVED: Gallbladder. COMPLICATIONS: None. OPERATIVE FINDINGS: 1. Acute cholecystitis with hydrops cholecystitis 2. Gallstone 1-2 cm in size 3. Dome down technique performed with severity of cholecystitis and edema of cystic structures 4. Intrahepatic gallbladder adding complexity to the case 5. Contaminated case. INDICATIONS: The patient is a 47-year-old male who presents with gallstone pancreatitis. Surgical intervention with a laparoscopic cholecystectomy was described at length including injury to the biliary tree, bleeding, infection, need for further surgery. Informed consent was obtained. Robotic assisted laparoscopic approach was described. Benefits and risks of the procedure including but not limited to bleeding, infection, injury to the biliary tree was described. Informed consent was obtained. DESCRIPTION OF PROCEDURE: Patient was brought to the operating room, placed in supine position. After general induction, the abdomen had been prepped and draped in standard sterile fashion. The robotic da Lori XI system was primed. After a timeout protocol was performed, the patient had been prepped and draped in standard sterile fashion. Indocyanine green was injected to help with visualization of cystic structures. The robot was docked along the left lateral abdomen. The patient was repositioned in reverse Trendelenburg position. Please note prior to docking of the robot; however, a 5 mm 0 degrees laparoscopic trocar entry was performed along the left upper quadrant. Next, two 8 mm robotic ports were placed along the right upper abdomen. The camera 8-mm port was maintained along the epigastrium. Another 8 mm port was placed along the left upper abdominal wall after exchanging the 5 mm port. Please note that the ports were placed at least 10 to 15 cm away from the target anatomy of the gallbladder. Using a grasper for arm 1, a grasper for arm 2, including hook cautery for arm 4 , the robotic system was docked and primed as described. Instruments were interchanged by the acute care assistant including hook cautery, Bovie cautery scissors and clip appliers. I had sat at the console. The gallbladder wall was moderately edematous including tense with large multiple gallstones adding difficulty with handling of the specimen. A dome down technique was performed as moderate edema was found along the infundibulum and cystic structures. Careful dissection was performed including along the gallbladder dissection as intrahepatic gallbladder was confirmed. Once the gallbladder was freed to the infundibulum, attention was brought to the cystic structures. The gallbladder fundus was retracted over the dome of the liver. Using a grasper, the cystic duct including the cystic artery was carefully skeletonized. Using a clip lease purchase truck driver 2 large PLASTIC clips were placed proximally, and 1 clip was placed distally along the cystic duct and then cauterized with the cautery. Again care was taken to avoid any injury to the biliary tree as the common bile duct. Similarly, additional large plastic clips were placed controlling the cystic artery with division using cautery. Spillage of bile did occur with 2 large gallstones also retrieved. Electro-Bovie cautery was used to remove the gallbladder from the hepatic fossa. Hemostasis was checked and found to be adequate. The robot was undocked. I re-scrubbed into the case. Using a 10 mm Endo Catch bag via the left upper quadrant incision, the specimen was removed from the abdominal cavity. All pneumoperitoneum instruments were evacuated from the abdominal cavity. The incisions were reapproximated using 4-0 Monocryl in an interrupted subcuticular fashion. Fascial defect oversewn using a Saul-Pepper and 0 Vicryl after widening the incision. Please note along the trocar sites, local anesthetic was placed as a field block prior to insertion of all instruments. Liquid glue was applied to the skin. Optifoam was applied to the left upper quadrant incision. At the end of the procedure needle, sponge, and instrument count had been verified correct by the architectural technician. The patient was transferred to postanesthesia care unit in stable condition. Intraoperative films were shared with the patient's family. Console time 131 minutes Plan - Discharge Summary Discharge Rx Participant: No New Discharge Prescriptions: New [facility]LOSEC[facility] capsule.dr Continue Lisinopril [Prinivil] 10 mg PO DAILY Discontinued Lisinopril [Zestril] 10 mg PO DAILY Discharge Medication List [facility]raz[facility] [[facility]riLOSEC] [facility] #14 capsule. 03/01/18 [Rx] Lisinopril [Prinivil] 10 mg PO DAILY 03/02/18 [History] Follow up Appointment(s)/Referral(s): Frank Ledezma DO [Primary Care Provider] - 03/10/18 9:40 am Ambulatory/Diagnostic Orders: Basic Metabolic Panel [LAB.AMB] Time Frame: 2 Days, Location: Determined By Patient Patient Instructions/Handouts: *Surgery [facility] - Laparoscopic Cholecystectomy Discharge Instructions, Omeprazole (By mouth), Pancreatitis (DC), Gallstones (DC ) Discharge Disposition: HOME SELF-CARE
[2018-03-03] MEDS: MEPERIDINE 50 MG/ML SYRINGE IVP ONE ×2 (13:10→13:27)
[2018-03-03] MEDS: DOCUSATE 100 MG CAP PO SCH (15:45)
[2018-03-03] MEDS: FAMOTIDINE 20 MG/2 ML VIAL IV SCH (15:45)
--- NOTE | 2018-03-03 16:21 | P.PN ---
Progress Note - Text Progress Note Date: 03/03/18 Patient seen. Pain well controlled. Intra-operative findings including post-op instructions reviewed which he verbalized understanding. Patient is clear for discharge from a surgical standpoint.
[2018-03-03 17:09] VITALS: BP 150/83; PULSE 66; RESP 16; TEMP 98.4
== END 2018-03-03 16:42 | disposition home or self-care (01) | DRG 417 ==
LOC: EC 18:28 → 3SUR 20:24 → 5MS5E 02-28 10:29
PROVIDERS: ADMIT Internal Medicine; ATTEND Internal Medicine
PROC: 8E0W4CZ Robotic Assisted Procedure of Trunk Region, Percutaneous Endoscopic Approach (ICD-10-PCS; 2018-03-03)
PROC: 0FT44ZZ Resection of Gallbladder, Percutaneous Endoscopic Approach (ICD-10-PCS; principal; 2018-03-03 09:10)
DX: K85.10 Biliary acute pancreatitis without necrosis or infection (principal); K80.67 Calculus of gallbladder and bile duct with acute and chronic cholecystitis with obstruction; K82.1 Hydrops of gallbladder; Q44.1 Other congenital malformations of gallbladder; I11.9 Hypertensive heart disease without heart failure; K21.9 Gastro-esophageal reflux disease without esophagitis; K29.70 Gastritis, unspecified, without bleeding; K59.00 Constipation, unspecified; E66.9 Obesity, unspecified; Z68.34 Body mass index [BMI] 34.0-34.9, adult; Z79.899 Other long term (current) drug therapy; Z71.3 Dietary counseling and surveillance
CPT/HCPCS: 36415; 74018; 76705; 80053; 81003; 82150; 83690; 84478; 85025; 88304; 96361; 96374; 96375; 99285

== ENCOUNTER 2021-11-17 12:24 | Day surgery (SDC) | payer BC ==
[2021-11-10 18:14] VITALS: BMI 35.9
[2021-11-17 12:53] VITALS: TEMP 97.4
[2021-11-17] MEDS ORDERED: LACTATED RINGERS 1,000 ML IV ONE (13:04)
[2021-11-17] MEDS ORDERED: methylPREDNISolone ACETATE 40 MG/ML 1 ML VIAL ONE (13:34)
[2021-11-17] MEDS ORDERED: fentaNYL (PF) 50 MCG/ML 2 ML AMP ONE (13:34)
[2021-11-17] MEDS ORDERED: IOPAMIDOL M200 10 ML VIAL ONE (13:34)
[2021-11-17] MEDS ORDERED: MIDAZOLAM 2 MG/2 ML VIAL ONE (13:34)
--- NOTE | 2021-11-17 13:44 | P.PCN ---
Date of Procedure: 11/17/21 Description of Procedure: PREOPERATIVE DIAGNOSIS: lumbar radiculopathy POSTOPERATIVE DIAGNOSIS: Lumbar radiculopathy PROCEDURE 1. Lumbar epidural steroid injection under fluoroscopic guidance at the L4-L5 level. 2. Lumbar epidurogram. Imaging: Fluoroscopy was used, images where saved to the medical record ANESTHESIA: Local with 1% lidocaine 5 ml and 2 mg of Versed 100 g of fentanyl EBL: Minimal PROCEDURE INDICATION: The patient with low back pain and radiculitis symptoms unresponsive to conservative treatment. Fluoroscopy was used to optimize visualization of the needle placement and to maximize safety. PROCEDURE DESCRIPTION / TECHNIQUE: The patient was seen and identified in the preoperative area. Risks, benefits, complications including but not limited to infections ,bleeding ,allergic reaction to the medications, nerve damage and incomplete pain relief , as well as alternatives to the procedure were discussed with the patient. The patient agreed to proceed with the procedure and signed the consent. IV was started, and vital signs were stable. Patient was taken to the OR and time out was completed. The patient was placed in the prone position on procedure table and a pillow was placed under the abdomen to reduce lumbar lordosis. The lumbosacral area was prepped and draped in the usual sterile fashion. Vitals were closely monitored during the procedure. Using anterior-posterior fluoroscopy, the L 4/5 interlaminar space was identified and the skin over this site was marked and then infiltrated with 1% lidocaine subcutaneously. Subsequently, a 20-gauge Tuohy epidural needle was inserted and advanced toward the epidural space using the Loss of resistance technique and guided by AP and lateral fluoroscopy. The correct needle position in the epidural space was verified with the injection of 1 mL of Omnipaque 180 contrast to observe an acceptable epidurogram, after negative aspiration for blood and CSF and in the absence of paresthesias. Again after negative aspiration, a 3 ml mixture containing 40mg of depomedrol and 2 ml of preservative free Normal Saline was injected and a washout of epidurogram was seen. Needle was withdrawn intact, skin was cleansed, and bandages were applied. COMPLICATIONS: None DISPOSITION / PLANS: The patient was placed in a supine position and transferred to the recovery area in a stable condition for observation. There was no evidence of lower extremity motor or sensory deficit after the procedure. Patient was discharged from the recovery room after meeting discharge criteria. Home discharge instructions were given to the patient by the staff. The patient was reexamined prior to discharge. The patient will follow up as directed.
[2021-11-17] MEDS ORDERED: IV FLUID CONTINUATION 800 ML IV ONE (13:51)
[2021-11-17 14:07] VITALS: BP 123/66; PULSE 62; RESP 20
--- NOTE | 2021-11-17 14:07 | FL ---
EXAMINATION TYPE: FL guided pain mgmt statistic DATE OF EXAM: 11/17/2021 HISTORY: Fluoroscopy time 4 seconds of fluoroscopy provided. IMPRESSION: 1. Fluoroscopy time.
== END 2021-11-17 14:19 | disposition home or self-care (01) ==
LOC: ORPAIN 12:24
PROVIDERS: ATTEND Hospitalist
DX: M54.16 Radiculopathy, lumbar region (principal); M48.061 Spinal stenosis, lumbar region without neurogenic claudication
CPT/HCPCS: 62323; J2250; J1030; J3010; Q9966

== ENCOUNTER → 2021-12-14 | Outpatient (CLI) | payer BC ==
--- NOTE | 2021-12-14 07:58 | P.PN ---
Subjective Progress Note Date: 12/14/21 Principal diagnosis: A 51 yr old male with at side with a history of severe and chronic low back pain secondary to lumbar degenerative disc diseases and lumbar spondylosis with facet arthropathy presents today for evaluation status post LESI of the L4- L5. Patient states he experienced 80% pain relief for 3-4 weeks status post procedure. Pain level is dull and achy in character, currently at 3 out of 10 in intensity, but escalates up to 8 out of 10 in intensity with provocation such as squatting or lifting. Pain is shooting towards the left buttock tox with tightness along the left lower extremity. Patient does not use medications or topicals and states he "pushes through it" Pain is alleviated with injections, ice, heat, physical therapy, chiropractic treatments, home exercise stretching regimen, laying supine on the right side and rest. Interventional pain procedures completed include LESI of the L4-L5 Patient denies any side effects of the medication(s), denies excessive drowsiness or sleepiness, denies suicidal ideation and reports that the current pain medication is helping to control the pain and improve activities of daily living. Patient denies any motor or sensory deficits. Patient denies any fever or night sweats, denies any change in the bowel movements or urination. Physical Examination: -Constitutional: Cooperative. Not in acute distress . -HEENT: Neck is supple. No lymphadenopathy. No thyromegaly. Normal thyroid size. Eyes: No ptosis , no icterus, no photophobia. ENT: No auditory deficits. Normal oropharynx. No Thrush. - Respiratory: Chest clear to auscultations bilaterally. No wheezing. No rhonchi. - Cardiovascular: Regular rate and rhythm. S1 / S2 , no S3 , no S4. - Gastrointestinal: Abdomen soft no tenderness. Bowel sounds positive in all four quadrants. No organomegaly. - Genitourinary: Deferred. - Neurologic: Cranial nerve II to XII intact. No focal neurological deficits. - Psychatric: Alert & oriented x 3. Matching mood & appropriate affect. Judgment and insight intact. - Lymphatic: No Lymphadenopathy. - Musculoskeletal: Cervical spine: Muscle bulk/ tone/ strength in the bilateral upper extremities normal. Facet loading test cervical area positive. Lumbar spine: Motor bulk/ tone/ strength lower extremities , thigh and legs : 5/5 Deep tendon reflexes : Normal Knee Jerk. Normal Ankle Jerk . Vertebral body tenderness to palpation over L4 and L5 Mild Lumbar Facet Loading Test positive over L4 to L5 and L5 to S1 Straight Leg Raise: positive at 30 degrees right side/ left side Gaenslen's Test postive Sacral spine : Severe tenderness over the Sacroiliac joint: right side / left side Range of motion: Flexion of the lumbar spine <60 degrees Range of motion: Extension of the lumbar spine <20 degrees Gaenslen's Test positive Jaziel test: positive right side / left side Assessment and plan: Chronic low back pain secondary to lumbar degenerative disc disease , lumbar spondylosis with facet arthropathy without myelopathy Recommendation of LESI L4-L5 #2 Risks, benefits of procedure discussed and patient verbalized understanding Denies aspirin or anticoagulants use All patient questions answered MAPS reviewed and it was appropriate. I have spent 31 minutes on patient care today. Dr Duke was available by phone for the evaluation of this patient. The time was used to review the medical records including relevant urine studies and Prescription history (MAPs), review of the available imaging, evaluation and examination of the patient, coordination of care with the medical staff and if applicable referring physicians, as well as creation of the medical record PQRS Measure Charge Sheet PQRS Narrative: Smoking Status Never smoker Pain Intensity [None] 0 Hx Alcohol Use (MH) No Home Medications: Ambulatory Orders Lisinopril [Prinivil] 20 mg PO DAILY 03/02/18 HYDROcodone/APAP 5-325MG [[place] 5-325] 1 tab PO Q6HR PRN #20 tab 03/03/18 Latanoprost Ophth [Xalatan 0.005%] 1 drop BOTH EYES HS 11/17/21 amLODIPine [Norvasc] 5 mg PO DAILY 11/17/21 Atorvastatin [Lipitor] 10 mg PO DAILY 12/11/21
[2021-12-14 08:13] VITALS: BP 125/86; PULSE 65; RESP 18; TEMP 98.7
== END ==
LOC: PNWHC3 07:20
PROVIDERS: ATTEND Physician Assistant Medical
DX: M51.36 Other intervertebral disc degeneration, lumbar region (principal); M47.816 Spondylosis without myelopathy or radiculopathy, lumbar region; G89.29 Other chronic pain
CPT/HCPCS: 99211

== ENCOUNTER 2022-01-14 07:35 | Day surgery (SDC) | payer BC ==
[2022-01-12 11:42] VITALS: BMI 35.0
[~2022-01-14 07:35] MED LIST: LACTATED RINGERS 1,000 ML IV SCH; LIDOCAINE 1% (10MG/ML) FOR IV START INTRADERMA PRN
[2022-01-14 08:17] VITALS: RESP 16; TEMP 97.6
[2022-01-14] MEDS ORDERED: fentaNYL (PF) 50 MCG/ML 2 ML AMP ONE (08:22)
[2022-01-14] MEDS ORDERED: IOPAMIDOL M200 10 ML VIAL ONE (08:22)
[2022-01-14] MEDS ORDERED: MIDAZOLAM 2 MG/2 ML VIAL ONE (08:22)
[2022-01-14] MEDS ORDERED: methylPREDNISolone ACETATE 40 MG/ML 1 ML VIAL ONE (08:22)
--- NOTE | 2022-01-14 08:35 | P.PCN ---
Date of Procedure: 01/14/22 Procedure(s) Performed: PREOPERATIVE DIAGNOSIS: 1- Lumbar Degenerative Disc Diseases 2-Lumbar spondylosis with Facet arthropathy without myelopathy. 3-lumbar radiculopathy POSTOPERATIVE DIAGNOSIS: Same as preop diagnosis. PROCEDURE 1. Lumbar epidural steroid injection under fluoroscopic guidance at the L4-5 level. (Fluoroscopy imaging was available in radiology department) 2. Lumbar epidurogram. ANESTHESIA: Local with 1% lidocaine 3 ml and , moderate sedation with i ntravenous Versed 2 mg ,and fentanyle 100 Mcg EBL: Minimal PROCEDURE INDICATION: The patient with low back pain and radiculitis symptoms unresponsive to conservative treatment. Fluoroscopy was used to optimize visualization of the needle placement and to maximize safety. PROCEDURE DESCRIPTION / TECHNIQUE: The patient was seen and identified in the preoperative area. Risks, benefits, complications including but not limited to infections ,bleeding ,allergic reaction to the medications ,nerve damage and not complete pain releife , and alternatives were discussed with the patient. The patient agreed to proceed with the procedure and signed the consent. IV was started, and vital signs were stable. Patient was taken to the OR and time out was completed. The patient was placed in the prone position on procedure table and a pillow was placed under the abdomen to reduce lumbar lordosis. The lumbosacral area was prepped and draped in the usual sterile fashion.ere closely monitored during the procedure. Conscious sedation was used during the procedure to decrease patients anxiety. Vital signs was monitered during the entire procedure. Using anterior-posterior fluoroscopy, the L4-5 interlaminar space was identified and the skin over this site was marked and then infiltrated with 1% lidocaine subcutaneously. Subsequently, a 20-gauge Tuohy epidural needle was inserted and advanced toward the epidural space using the ``Loss of resistance technique and guided by AP and lateral fluoroscopy. The correct needle position in the epidural space was verified with the injection of 2 mL of the water soluble contrast dye Isovue 200 contrast and observing an excellent epidurogram with the epidural spread of the dye, after negative aspiration for blood and CSF and in the absence of paresthesias. Again after negative aspiration, a 6 ml mixture containing 80 mg of Depo-medrol , and 2 ml of preservative free Normal Saline, and 2 ml of preservative free lidocaine 1% solution was injected and a washout of epidurogram was seen. Needle was withdrawn intact, skin was cleansed, and bandages were applied. COMPLICATIONS: None DISPOSITION / PLANS: The patient was placed in a supine position and transferred to the recovery area in a stable condition for observation. There was no evidence of lower extremity motor or sensory deficit after the procedure. Patient was discharged from the recovery room after meeting discharge criteria. Home discharge instructions were given to the patient by the staff. The patient was reexamined prior to discharge. The patient will schedule a follow up in the clinic in 2-4 weeks.
[2022-01-14] MEDS ORDERED: IV FLUID CONTINUATION 1,000 ML IV ONE (08:39)
[2022-01-14 09:14] VITALS: BP 110/75; PULSE 62
--- NOTE | 2022-01-14 09:17 | FL ---
Fluoroscopy HISTORY: Pain 1 seconds fluoroscopy time supplied to the referring clinician. 1 intraoperative C-arm images docume nt the procedure. See dictated report from anesthesia.
== END 2022-01-14 09:14 | disposition home or self-care (01) ==
LOC: ORPAIN 07:35
PROVIDERS: ATTEND Specialist
DX: M51.16 Intervertebral disc disorders with radiculopathy, lumbar region (principal); M47.26 Other spondylosis with radiculopathy, lumbar region
CPT/HCPCS: 62323; J2250; J1030; J3010; Q9966; 99152

== ENCOUNTER → 2022-02-01 | Outpatient (CLI) | payer BC ==
[2022-02-01 09:58] VITALS: BP 140/82; PULSE 64; RESP 18; TEMP 98.6
--- NOTE | 2022-02-01 10:35 | P.PN ---
Subjective Progress Note Date: 02/01/22 Principal diagnosis: A 51 yr old male with a history of severe and chronic low back pain secondary to lumbar degenerative disc diseases and lumbar spondylosis with facet arthropathy presents today for evaluation status post LESI L4-L5 #2. She states he experienced 70% pain relief status post procedure. Pain level is currently at 5 out of 10 in intensity, dull, achy in the lower aspects of his lumbar spine with radiation of pain occasionally down the left lower extremity. Pain is provoked by bending or lifting. Pain is alleviated with injections, heat, physical therapy that ended in July 2021, chiropractic treatments on a monthly basis, home stretching regimen, workout regimen and rest. Interventional pain procedures completed include LESI L4-L5 #2 Patient is currently on DENIES Patient denies any side effects of the medication(s), denies excessive drowsiness or sleepiness, denies suicidal ideation and reports that the current pain medication is helping to control the pain and improve activities of daily living. Patient denies any motor or sensory deficits. Patient denies any fever or night sweats, denies any change in the bowel movements or urination. Physical Examination: -Constitutional: Cooperative. Not in acute distress . -HEENT: Neck is supple. No lymphadenopathy. No thyromegaly. Normal thyroid size. Eyes: No ptosis , no icterus, no photophobia. ENT: No auditory deficits. Normal oropharynx. No Thrush. - Respiratory: Chest clear to auscultations bilaterally. No wheezing. No rhonchi. - Cardiovascular: Regular rate and rhythm. S1 / S2 , no S3 , no S4. - Gastrointestinal: Abdomen soft no tenderness. Bowel sounds positive in all four quadrants. No organomegaly. - Genitourinary: Deferred. - Neurologic: Cranial nerve II to XII intact. No focal neurological deficits. - Psychatric: Alert & oriented x 3. Matching mood & appropriate affect. Judgment and insight intact. - Lymphatic: No Lymphadenopathy. - Musculoskeletal: Cervical spine: Muscle bulk/ tone/ strength in the bilateral upper extremities normal. Facet loading test cervical area positive. Lumbar spine: Motor bulk/ tone/ strength lower extremities , thigh and legs : 5/5 Deep tendon reflexes : Normal Knee Jerk. Normal Ankle Jerk . Vertebral body tenderness to palpation over L5 Lumbar Facet Loading Test positive Straight Leg Raise: positive at 30 degrees right side/ left side Gaenslen's Test positive Sacral spine : Severe tenderness over the Sacroiliac joint: right side / left side Range of motion: Flexion of the lumbar spine <60 degrees Range of motion: Extension of the lumbar spine <20 degrees Gaenslen's Test positive Jaziel test: positive right side / left side Assessment and plan: Chronic low back pain secondary to lumbar degenerative disc disease , lumbar spondylosis with facet arthropathy without myelopathy Patient obtained sufficient in satisfactory pain relief with the prior LESI treatments. He will increase his workout regimen and return to our clinic on an as needed basis. All patient questions answered MAPS reviewed and it was appropriate. I have spent 31 minutes on patient care today. Dr Duke was available by phone for the evaluation of this patient. The time was used to review the medical records including relevant urine studies and Prescription history (MAPs), review of the available imaging, evaluation and examination of the patient, coordination of care with the medical staff and if applicable referring physicians, as well as creation of the medical record Objective - Vital Signs Vital signs: Vital Signs Temp 98.6 F 02/01/22 09:54 Pulse 64 02/01/22 09:54 Resp 18 02/01/22 09:54 BP 140/82 02/01/22 09:54 Pulse Ox 95 02/01/22 09:54 PQRS Measure Charge Sheet Mode of Arrival: Ambulatory - Pain Location Lower Back Non-Pharmacological Interventions: Chiropractic Treatment, Heat, Home Exercise, Ice, Inactivity, Physical Therapy, Position/Reposition, Stretching Pharmacological Interventions: Epidural PQRS Narrative: Smoking Status Never smoker Blood Pressure 140/82 Pain Intensity [Lower Back] 5 Scale Used Numeric (1 - 10) Hx Alcohol Use (MH) No Home Medications: Ambulatory Orders Lisinopril [Prinivil] 20 mg PO DAILY 03/02/18 Latanoprost Ophth [Xalatan 0.005%] 1 drop BOTH EYES HS 11/17/21 amLODIPine [Norvasc] 5 mg PO DAILY 11/17/21 Atorvastatin [Lipitor] 10 mg PO DAILY 12/11/21
== END ==
LOC: PNWHC3 09:20
PROVIDERS: ATTEND Specialist
DX: M51.36 Other intervertebral disc degeneration, lumbar region (principal); M47.816 Spondylosis without myelopathy or radiculopathy, lumbar region; G89.29 Other chronic pain
CPT/HCPCS: 99211

== ENCOUNTER → 2024-04-03 | Outpatient (CLI) | payer BC ==
--- NOTE | 2024-04-03 17:47 | US ---
EXAMINATION TYPE: US kidneys/renal and bladder DATE OF EXAM: 04/03/2024 COMPARISON: NONE CLINICAL INDICATION: Male, 54 years old with history of N28.1 CYST OF KIDNEY, ACQUIRED; Hx of cyst EXAM MEASUREMENTS: Right Kidney: 10.6 x 5.2 x 4.3 cm Left Kidney: 11.5 x 5.1 x 4.6 cm Right Kidney: No hydronephrosis or masses seen Left Kidney: Anechoic area seen lower pole 4.4 x 2.9 x 3.4 cm. Bladder: ? prominent prostate Bilateral Jets seen: no There is no evidence for hydronephrosis at this point in time. No nephrolithiasis is seen. No viraj s are identified. The urinary bladder is anechoic. Bilateral ureteral jets are seen. IMPRESSION: 1. No evidence for obstructive uropathy. 2. Enlarged prostate gland versus bladder mass identified. Consider CT urogram for complete evaluati on. Correlate with serum PSA.
== END | disposition home or self-care (01) ==
LOC: RADUSWWP 16:14
PROVIDERS: ATTEND Family Medicine
DX: N28.1 Cyst of kidney, acquired (principal)
CPT/HCPCS: 76770

== ENCOUNTER → 2024-05-10 | Outpatient (CLI) | payer BC ==
--- NOTE | 2024-05-10 19:30 | CT ---
EXAMINATION TYPE: CT urogram wo/w con CT DLP: 4508.4 mGycm, Automated exposure control for dose reduction was used. DATE OF EXAM: 05/10/2024 6:31 PM COMPARISON: 04/03/2024 ultrasound CLINICAL INDICATION:Male, 54 years old with history of N32.89 DISORDER OF BLADDER; PHH, bladder mass TECHNIQUE: Urogram with imaging of the abdomen and pelvis. Coronal and sagittal reformats were performed. 2D and 3D reconstructions are performed to assist visualization of the urinary tract on a separate workstat ion. Contrast used:80cc mL of Isovue 300 without and with IV Contrast, Oral contrast used: None. FINDINGS: LOWER CHEST: No significant findings. GENITOURINARY: RIGHT KIDNEY AND URETER: No calculi. No hydronephrosis or hydroureter. No renal mass or other lesions . No urothelial lesions: no filling defect, dilation, stricture or wall thickening. LEFT KIDNEY AND URETER: Left simple appearing renal cysts. No calculi. No hydronephrosis or hydrouret er. No renal mass or other lesions. Limited distal ureter secondary to lack of excreted IV contrast w ith that said urothelial lesions: no filling defect, dilation, stricture or wall thickening. URINARY BLADDER: Not optimally distended. Limited evaluation secondary to partial filling of the blad olivier with excreted IV contrast. No calculi or obvious mass. No bladder masses are identified in the vi sualized. REPRODUCTIVE: Prostate is enlarged in size measuring 5.0 cm in transverse dimension. ABDOMEN LIVER: Unremarkable. GALLBLADDER AND BILE DUCTS: Gallbladder is surgically absent. PANCREAS: Unremarkable. SPLEEN: Unremarkable. ADRENAL GLANDS: Unremarkable. STOMACH AND BOWEL: . No evidence of bowel obstruction. The appendix is normal.e PERITONEUM: No evidence of pneumoperitoneum, free fluid, or adenopathy. VASCULATURE: No evidence of aortic aneurysm. MUSCULOSKELETAL: No acute osseous abnormalities, grade 1 anterolisthesis of L4 and L5. Moderate to se nahid L4-L5 spinal canal stenosis. LYMPH NODES: No gross evidence for lymphadenopathy. SOFT TISSUE/ABDOMINAL WALL: Unremarkable IMPRESSION: 1. Prostatomegaly with median lobe hypertrophy impressing into the bladder lumen correlating with pr ior ultrasound. No masses definitively visualized. 2. No evidence of urolithiasis or renal/urothelial neoplasm.
== END | disposition home or self-care (01) ==
LOC: RADCTMAIN 16:58
PROVIDERS: ATTEND Family Medicine
DX: N40.0 Benign prostatic hyperplasia without lower urinary tract symptoms (principal); N32.89 Other specified disorders of bladder
CPT/HCPCS: 74178; 74400; Q9967